=== PATIENT | female | born 1960 | race Caucasian/White ===

== ENCOUNTER 2019-10-30 09:15 | Outpatient (REF) | payer BC, SELFPAY ==
[2019-10-30 21:19] LABS: ALT 48 U/L (14-59); AST 24 U/L (15-37); Albumin 3.3 g/dL (3.4-5.0); Alkaline Phosphatase 64 U/L (46-116); Anion Gap 11.3 mmol/L (3-11); Bilirubin, Total 0.4 mg/dL (0.2-1.0); CO2 27.7 mmol/L (21.0-32.0); CREATININE 0.71 mg/dL (0.55-1.02); Calcium 8.6 mg/dL (8.5-10.1); Calculated LDL 97 mg/dL (<100); Chloride 106 mmol/L (98-107); Cholesterol 154 mg/dL (<200); Glucose 103 mg/dL (74-106); HDL Cholesterol 28 mg/dL (40-60); Potassium 4.5 mmol/L (3.5-5.1); Sodium 145 mmol/L (136-145); TSH (W/Ref FT4) 3.72 uIU/mL (0.36-3.74); Triglyceride 149 mg/dL (<150)
[2019-10-30 21:47] LABS: BUN 10 mg/dL (7-18)
== END 2019-10-30 09:35 ==
LOC: NCHCN 09:15
PROVIDERS: Visit Provider Nurse Practitioner Family
DX: E03.9 Hypothyroidism, unspecified (principal); E78.01 Familial hypercholesterolemia
CPT/HCPCS: 80053; 80061; 84443

== ENCOUNTER 2020-08-09 09:25 | Outpatient (REF) | payer BC, SELFPAY ==
[2020-08-09 21:50] LABS: ALT 36 U/L (14-59); AST 24 U/L (15-37); Albumin 4.1 g/dL (3.4-5.0); Alkaline Phosphatase 48 U/L (46-116); Anion Gap 9.7 mmol/L (3-11); BUN 11 mg/dL (7-18); Bilirubin, Total 0.4 mg/dL (0.2-1.0); CO2 27.3 mmol/L (21.0-32.0); CREATININE 0.79 mg/dL (0.55-1.02); Calcium 8.9 mg/dL (8.5-10.1); Chloride 104 mmol/L (98-107); Creatine Kinase 125 U/L (26-192); Glucose 100 mg/dL (74-106); Potassium 4.1 mmol/L (3.5-5.1); Sodium 141 mmol/L (136-145); Total Protein 7.3 g/dL (6.4-8.2)
[2020-08-09 21:55] LABS: Hemoglobin A1C 5.6 % (<5.7)
[2020-08-11 04:47] LABS: Vitamin D 25 Total 25.3 ng/ml (30-100)
== END 2020-08-09 09:45 ==
LOC: NCHCN 09:25
PROVIDERS: Visit Provider Nurse Practitioner Family
DX: R73.03 Prediabetes (principal); M79.18 Myalgia, other site
CPT/HCPCS: 80053; 82306; 82550; 83036

== ENCOUNTER 2020-10-04 15:20 | Outpatient (REF) | payer BC, SELFPAY ==
[2020-10-04 21:37] LABS: Hemoglobin A1C 5.8 % (<5.7)
[2020-10-04 21:54] LABS: ALT 32 U/L (14-59); AST 20 U/L (15-37); Albumin 3.9 g/dL (3.4-5.0); Alkaline Phosphatase 42 U/L (46-116); Anion Gap 9.7 mmol/L (3-11); BUN 12 mg/dL (7-18); Bilirubin, Total 0.4 mg/dL (0.2-1.0); CO2 27.3 mmol/L (21.0-32.0); CREATININE 0.78 mg/dL (0.55-1.02); Calcium 8.8 mg/dL (8.5-10.1); Calculated LDL 141 mg/dL (<100); Chloride 105 mmol/L (98-107); Cholesterol 212 mg/dL (<200); Glucose 103 mg/dL (74-106); HDL Cholesterol 45 mg/dL (40-60); Potassium 4.5 mmol/L (3.5-5.1); Sodium 142 mmol/L (136-145); TSH (W/Ref FT4) 1.55 uIU/mL (0.36-3.74); Total Protein 7.1 g/dL (6.4-8.2); Triglyceride 133 mg/dL (<150)
[2020-10-06 04:49] LABS: Vitamin D 25 Total 42.3 ng/ml (30-100)
== END 2020-10-04 15:40 ==
LOC: NCHCN 15:20
PROVIDERS: Visit Provider Nurse Practitioner Family
DX: E03.9 Hypothyroidism, unspecified (principal); R73.03 Prediabetes; E78.5 Hyperlipidemia, unspecified; E55.9 Vitamin D deficiency, unspecified
CPT/HCPCS: 80053; 80061; 82306; 83036; 84443

== ENCOUNTER 2020-10-12 19:02 | Outpatient (REF) | payer BC, SELFPAY ==
[2020-10-12 22:20] LABS: Abs Immature Grans 0.01 10^3/uL (0.0-0.06); Absolute Basophil Count 0.05 10^3/uL (0.0-0.2); Absolute Eosinophil Count 0.15 10^3/uL (0.0-0.7); Absolute Monocyte Count 0.24 10^3/uL (0.1-0.8); Basophils % 0.9; Eosinophils % 2.8; HCT 41.1 % (36.0-46.0); HGB 13.5 g/dL (11.2-15.7); Immature Grans % 0.2; Lymphocytes % 38.5; MCH 28.7 pg (27.0-33.0); MCHC 32.8 % (32.0-36.0); MCV 87.3 fL (80-95); MPV 9.2 fL (8.0-11.0); Monocytes % 4.4; Neutrophils % 53.2; Nucleated RBC 0 %; Platelet Count 298 10^3/uL (130-400); RBC 4.71 10^6/uL (3.93-5.22); RDW 12.7 % (11.7-14.6); RDW-SD 40.4 fL; WBC 5.45 10^3/uL (4.4-10.8)
[2020-10-12 22:28] LABS: C-Reactive Protein 0.07 mg/dL (0.0-0.3)
[2020-10-12 23:07] LABS: ESR 12 mm/hr (0-30)
[2020-10-14 13:27] LABS: ANA Interpretation Negative (Negative)
== END 2020-10-12 19:22 ==
LOC: NCHCN 19:02
PROVIDERS: PCP Nurse Practitioner Family; Visit Provider Nurse Practitioner Family
DX: M25.569 Pain in unspecified knee (principal); M25.559 Pain in unspecified hip
CPT/HCPCS: 85652; 85025; 86038; 86140

== ENCOUNTER 2020-11-28 14:10 | Outpatient (REF) | payer BC, SELFPAY ==
[2020-11-30 12:57] LABS: COVID-19 RT-PCR UVMMC Result Negative (Negative)
== END 2020-11-28 14:11 | disposition home or self-care (01) ==
LOC: NCHCN 14:10
PROVIDERS: PCP Nurse Practitioner Family; Visit Provider Nurse Practitioner Family
DX: Z20.822 Contact with and (suspected) exposure to COVID-19 (principal)
CPT/HCPCS: U0003

== ENCOUNTER 2021-05-22 11:54 | Outpatient (REF) | payer BC, SELFPAY ==
[2021-05-22 16:51] LABS: Hemoglobin A1C 5.7 % (<5.7)
[2021-05-22 18:02] LABS: ALT 37 U/L (14-59); AST 23 U/L (15-37); Albumin 4.1 g/dL (3.4-5.0); Alkaline Phosphatase 49 U/L (46-116); Anion Gap 13.3 mmol/L (3-11); BUN 11 mg/dL (7-18); Bilirubin, Total 0.4 mg/dL (0.2-1.0); CO2 24.7 mmol/L (21.0-32.0); CREATININE 0.8 mg/dL (0.55-1.02); Calculated LDL 134 mg/dL (<100); Chloride 105 mmol/L (98-107); Cholesterol 206 mg/dL (<200); Glucose 108 mg/dL (74-106); HDL Cholesterol 39 mg/dL (40-60); Potassium 4.3 mmol/L (3.5-5.1); Sodium 143 mmol/L (136-145); TSH 2.31 uIU/mL (0.36-3.74); Total Protein 7.1 g/dL (6.4-8.2); Triglyceride 168 mg/dL (<150); Vitamin B12 299 pg/mL (193-986)
[2021-05-22 19:21] LABS: Folate 14.1 ng/mL (8.6-20.0)
[2021-05-23 16:02] LABS: Magnesium 1.9 mg/dL (1.7-2.8)
== END 2021-05-22 11:55 | disposition home or self-care (01) ==
LOC: NCHCN 11:54
PROVIDERS: PCP Nurse Practitioner Family; Visit Provider Nurse Practitioner Family
DX: R73.03 Prediabetes (principal); E03.9 Hypothyroidism, unspecified; E78.5 Hyperlipidemia, unspecified; M79.2 Neuralgia and neuritis, unspecified; M79.10 Myalgia, unspecified site
CPT/HCPCS: 80053; 80061; 82607; 82746; 83036; 83735; 84443

== ENCOUNTER 2021-06-20 11:09 | Outpatient (REF) | payer BC, SELFPAY ==
[2021-06-20 13:51] LABS: ALT 41 U/L (14-59); AST 19 U/L (15-37); Albumin 4.1 g/dL (3.4-5.0); Alkaline Phosphatase 45 U/L (46-116); Anion Gap 9.7 mmol/L (3-11); BUN 11 mg/dL (7-18); Bilirubin, Total 0.6 mg/dL (0.2-1.0); CO2 27.3 mmol/L (21.0-32.0); CREATININE 0.8 mg/dL (0.55-1.02); Calcium 8.8 mg/dL (8.5-10.1); Calculated LDL 91 mg/dL (<100); Chloride 106 mmol/L (98-107); Cholesterol 168 mg/dL (<200); Glucose 98 mg/dL (74-106); HDL Cholesterol 43 mg/dL (40-60); Potassium 4.3 mmol/L (3.5-5.1); Sodium 143 mmol/L (136-145); Triglyceride 170 mg/dL (<150)
== END 2021-06-20 11:10 | disposition home or self-care (01) ==
LOC: NCHCN 11:09
PROVIDERS: PCP Nurse Practitioner Family; Visit Provider Nurse Practitioner Family
DX: E78.5 Hyperlipidemia, unspecified (principal); Z00.00 Encounter for general adult medical examination without abnormal findings
CPT/HCPCS: 80053; 80061

== ENCOUNTER 2022-04-27 16:48 | Outpatient (REF) | payer BC, SELFPAY ==
[2022-04-27 22:43] LABS: ALT 38 U/L (14-59); AST 24 U/L (15-37); Alkaline Phosphatase 34 U/L (46-116); Anion Gap 8.5 mmol/L (3-11); BUN 14 mg/dL (7-18); Bilirubin, Total 0.4 mg/dL (0.2-1.0); CO2 26.5 mmol/L (21.0-32.0); CREATININE 0.7 mg/dL (0.55-1.02); Calcium 8.6 mg/dL (8.5-10.1); Calculated LDL 100 mg/dL (<100); Chloride 106 mmol/L (98-107); Cholesterol 164 mg/dL (<200); Glucose 99 mg/dL (74-106); HDL Cholesterol 48 mg/dL (40-60); Potassium 4.2 mmol/L (3.5-5.1); Sodium 141 mmol/L (136-145); Total Protein 7.2 g/dL (6.4-8.2); Triglyceride 84 mg/dL (<150)
== END 2022-04-27 16:49 | disposition home or self-care (01) ==
LOC: NCHCN 16:48
PROVIDERS: PCP Nurse Practitioner Family; Visit Provider Nurse Practitioner Family
DX: E03.9 Hypothyroidism, unspecified (principal); E78.5 Hyperlipidemia, unspecified; R03.0 Elevated blood-pressure reading, without diagnosis of hypertension
CPT/HCPCS: 80053; 80061; 84443

== ENCOUNTER 2023-01-02 12:30 | Outpatient (REF) | payer BC, SELFPAY ==
[2023-01-02 13:22] LABS: Abs Immature Grans 0.02 10^3/uL (0.0-0.06); Absolute Basophil Count 0.06 10^3/uL (0.0-0.2); Absolute Eosinophil Count 0.13 10^3/uL (0.0-0.7); Absolute Lymphocyte Count 2.52 10^3/uL (1.2-3.4); Absolute Monocyte Count 0.33 10^3/uL (0.1-0.8); Absolute Neutrophil Count 2.05 10^3/uL (1.2-6.7); Basophils % 1.2; Eosinophils % 2.5; HCT 41.8 % (36.0-46.0); HGB 14.1 g/dL (11.2-15.7); Immature Grans % 0.4; Lymphocytes % 49.3; MCH 29.3 pg (27.0-33.0); MCHC 33.7 % (32.0-36.0); MCV 87 fL (80-95); MPV 8.7 fL (8.0-11.0); Monocytes % 6.5; Neutrophils % 40.1; Platelet Count 274 10^3/uL (130-400); RBC 4.81 10^6/uL (3.93-5.22); RDW 12.9 % (11.7-14.6); RDW-SD 40.3 fL; WBC 5.11 10^3/uL (4.4-10.8)
[2023-01-02 14:18] LABS: Hemoglobin A1C 5.8 % (<5.7)
[2023-01-02 14:24] LABS: ALT 40 U/L (14-59); AST 28 U/L (15-37); Albumin 3.8 g/dL (3.4-5.0); Alkaline Phosphatase 46 U/L (46-116); Anion Gap 9.4 mmol/L (3-11); BUN 13 mg/dL (7-18); Bilirubin, Total 0.4 mg/dL (0.2-1.0); CO2 25.6 mmol/L (21.0-32.0); CREATININE 0.9 mg/dL (0.55-1.02); Calcium 8.9 mg/dL (8.5-10.1); Calculated LDL 206 mg/dL (<100); Chloride 107 mmol/L (98-107); Cholesterol 310 mg/dL (<200); Estimated GFR 72.28 (mL/min/1.73m2); Glucose 100 mg/dL (74-106); HDL Cholesterol 49 mg/dL (40-60); Potassium 4.1 mmol/L (3.5-5.1); Sodium 142 mmol/L (136-145); TSH (W/Ref FT4) 2.63 uIU/mL (0.36-3.74); Total Protein 7.5 g/dL (6.4-8.2); Triglyceride 276 mg/dL (<150)
== END 2023-01-02 12:31 | disposition home or self-care (01) ==
LOC: NCHCN 12:30
PROVIDERS: PCP Nurse Practitioner Family; Visit Provider Family Medicine
DX: E03.9 Hypothyroidism, unspecified (principal); E78.5 Hyperlipidemia, unspecified; R53.83 Other fatigue; R63.5 Abnormal weight gain; R73.03 Prediabetes
CPT/HCPCS: 80053; 80061; 83036; 84443; 85025

== ENCOUNTER 2023-01-29 15:21 | Outpatient (REF) | payer BC, SELFPAY ==
[2023-01-29 21:24] LABS: Iron 55 ug/dL (50-170); Total Iron Binding Capacity 317 ug/dL (250-450); Transferrin Sat 17 % (15-50)
[2023-01-29 21:47] LABS: Ferritin 72 ng/mL (8-252); Folate 14.5 ng/mL (8.6-20.0); Magnesium 1.9 mg/dL (1.8-2.4); Vitamin B12 383 pg/mL (193-986)
== END 2023-01-29 15:22 | disposition home or self-care (01) ==
LOC: NCHCN 15:21
PROVIDERS: PCP Nurse Practitioner Family; Visit Provider Family Medicine
DX: R53.83 Other fatigue (principal); F41.8 Other specified anxiety disorders; M79.18 Myalgia, other site
CPT/HCPCS: 82607; 82728; 82746; 83540; 83550; 83735

== ENCOUNTER 2023-05-01 09:48 | Outpatient (REF) | payer BC, SELFPAY ==
[2023-05-01 15:41] LABS: Calculated LDL 53 mg/dL (<100); Cholesterol 125 mg/dL (<200); HDL Cholesterol 48 mg/dL (40-60); Triglyceride 124 mg/dL (<150)
== END 2023-05-01 09:49 | disposition home or self-care (01) ==
LOC: NCHCN 09:48
PROVIDERS: PCP Nurse Practitioner Family; Visit Provider Family Medicine
DX: E78.5 Hyperlipidemia, unspecified (principal)
CPT/HCPCS: 80061

== ENCOUNTER 2023-11-28 21:00 | Outpatient (REF) | payer BC, SELFPAY ==
[2023-11-28 21:00] LABS: HGB 13.5 g/dL (11.2-15.7); MCH 28.4 pg (27.0-33.0); MCHC 32.9 % (32.0-36.0); MCV 86 fL (80-95); MPV 9.3 fL (8.0-11.0); Platelet Count 266 10^3/uL (130-400); RBC 4.75 10^6/uL (3.93-5.22); RDW 13.9 % (11.7-14.6); RDW-SD 44.4 fL; WBC 5.02 10^3/uL (4.4-10.8)
[2023-11-28 21:18] LABS: Albumin 3.9 g/dL (3.4-5.0); Alkaline Phosphatase 472 U/L (46-116); Anion Gap 9.4 mmol/L (3-11); BUN 9 mg/dL (7-18); Bilirubin, Total 2.3 mg/dL (0.2-1.0); CO2 26.6 mmol/L (21.0-32.0); CREATININE 0.8 mg/dL (0.55-1.02); Calcium 9.2 mg/dL (8.5-10.1); Chloride 107 mmol/L (98-107); Estimated GFR 82.74 (mL/min/1.73m2); Glucose 124 mg/dL (74-106); Lipase 59 U/L (16-77); Potassium 4.1 mmol/L (3.5-5.1); Sodium 143 mmol/L (136-145); Total Protein 7.5 g/dL (6.4-8.2)
[2023-11-28 21:51] LABS: ALT > 10000 U/L (14-59); AST > 8000 U/L (15-37)
== END 2023-11-28 21:01 | disposition home or self-care (01) ==
LOC: NCHCN 21:00
PROVIDERS: PCP Nurse Practitioner Family; Visit Provider Family Medicine
DX: R10.9 Unspecified abdominal pain (principal)
CPT/HCPCS: 80053; 83690; 85027

== ENCOUNTER 2023-12-10 12:18 | Outpatient (REF) | payer BC, SELFPAY ==
[2023-12-10 15:22] LABS: ALT 414 U/L (14-59); AST 70 U/L (15-37); Albumin 3.3 g/dL (3.4-5.0); Alkaline Phosphatase 176 U/L (46-116); Anion Gap 9.8 mmol/L (3-11); BUN 13 mg/dL (7-18); Bilirubin, Direct 0.5 mg/dL (0.0-0.2); Bilirubin, Total 0.9 mg/dL (0.2-1.0); CO2 27.2 mmol/L (21.0-32.0); CREATININE 0.8 mg/dL (0.55-1.02); Calcium 9.1 mg/dL (8.5-10.1); Chloride 104 mmol/L (98-107); Estimated GFR 82.74 (mL/min/1.73m2); Glucose 99 mg/dL (74-106); Potassium 4.1 mmol/L (3.5-5.1); Sodium 141 mmol/L (136-145); Total Protein 7.3 g/dL (6.4-8.2)
== END 2023-12-10 12:19 | disposition home or self-care (01) ==
LOC: NCHCN 12:18
PROVIDERS: PCP Nurse Practitioner Family; Visit Provider Family Medicine
DX: C24.9 Malignant neoplasm of biliary tract, unspecified (principal)
CPT/HCPCS: 80053; 82248

== ENCOUNTER 2024-07-20 15:16 | Outpatient (REF) | payer BC, SELFPAY ==
[2024-07-20 21:41] LABS: TSH (W/Ref FT4) 1.95 uIU/mL (0.36-3.74)
[2024-07-20 21:53] LABS: Calculated LDL 97 mg/dL (<100); Cholesterol 177 mg/dL (<200); HDL Cholesterol 59 mg/dL (40-60); Triglyceride 106 mg/dL (<150)
== END 2024-07-20 15:17 | disposition home or self-care (01) ==
LOC: NCHCN 15:16
PROVIDERS: PCP Nurse Practitioner Family; Visit Provider Family Medicine
DX: E03.9 Hypothyroidism, unspecified (principal); E78.5 Hyperlipidemia, unspecified
CPT/HCPCS: 80061; 84443

== ENCOUNTER 2024-12-16 15:22 | Outpatient (REF) | payer BC, SELFPAY ==
[2024-12-16 15:58] LABS: Abs Immature Grans 0.02 10^3/uL (0.0-0.06); Absolute Basophil Count 0.02 10^3/uL (0.0-0.2); Absolute Eosinophil Count 0.11 10^3/uL (0.0-0.7); Absolute Lymphocyte Count 1.04 10^3/uL (1.2-3.4); Absolute Monocyte Count 0.25 10^3/uL (0.1-0.8); Basophils % 0.5 %; HCT 37.2 % (36.0-46.0); Immature Grans % 0.5 %; Lymphocytes % 28.3 %; MCH 27.1 pg (27.0-33.0); MCHC 32.3 % (32.0-36.0); MCV 84 fL (80-95); MPV 8.8 fL (8.0-11.0); Monocytes % 6.8 %; Neutrophils % 60.9 %; Platelet Count 230 10^3/uL (130-400); RBC 4.42 10^6/uL (3.93-5.22); RDW 14.4 % (11.7-14.6); RDW-SD 43.8 fL; WBC 3.67 10^3/uL (4.4-10.8)
[2024-12-16 16:01] LABS: Absolute Neutrophil Count 2.24 10^3/uL (1.2-6.7)
[2024-12-16 16:30] LABS: ALT 88 U/L (14-59); AST 64 U/L (15-37); Albumin 3.5 g/dL (3.4-5.0); Alkaline Phosphatase 183 U/L (46-116); Anion Gap 8.8 mmol/L (3-11); BUN 11 mg/dL (7-18); Bilirubin, Total 0.3 mg/dL (0.2-1.0); CO2 30.2 mmol/L (21.0-32.0); CREATININE 0.7 mg/dL (0.55-1.02); Chloride 107 mmol/L (98-107); Estimated GFR 96.52 (mL/min/1.73m2); Glucose 112 mg/dL (74-106); Potassium 3.9 mmol/L (3.5-5.1); Sodium 146 mmol/L (136-145); TSH (W/Ref FT4) 4.69 uIU/mL (0.36-3.74); Total Protein 7.4 g/dL (6.4-8.2)
[2024-12-17 20:16] LABS: T4, Free 1.1 ng/dL (0.8-2.2)
== END 2024-12-16 15:23 | disposition home or self-care (01) ==
LOC: NCHCN 15:22
PROVIDERS: PCP Nurse Practitioner Family; Visit Provider Family Medicine
DX: R53.83 Other fatigue (principal); E78.5 Hyperlipidemia, unspecified; E03.9 Hypothyroidism, unspecified
CPT/HCPCS: 80053; 84439; 84443; 85025

== ENCOUNTER 2025-01-27 11:41 | Outpatient (REF) | payer BC, SELFPAY ==
[2025-01-27 15:16] LABS: TSH (W/Ref FT4) 3.23 uIU/mL (0.36-3.74)
== END 2025-01-27 11:42 | disposition home or self-care (01) ==
LOC: NCHCN 11:41
PROVIDERS: PCP Nurse Practitioner Family; Visit Provider Family Medicine
DX: E03.9 Hypothyroidism, unspecified (principal)
CPT/HCPCS: 84443

== ENCOUNTER 2025-03-16 13:50 | Outpatient (REF) | payer BC, SELFPAY ==
[2025-03-16 17:35] LABS: Iron 62 ug/dL (50-170); Total Iron Binding Capacity 364 ug/dL (250-450); Transferrin Sat 17 % (15-50)
[2025-03-16 18:05] LABS: ALT 56 U/L (14-59); AST 36 U/L (15-37); Albumin 3.5 g/dL (3.4-5.0); Alkaline Phosphatase 114 U/L (46-116); Anion Gap 8.9 mmol/L (3-11); BUN 8 mg/dL (7-18); Bilirubin, Total 0.5 mg/dL (0.2-1.0); CO2 26.1 mmol/L (21.0-32.0); CREATININE 0.8 mg/dL (0.55-1.02); Calcium 8.4 mg/dL (8.5-10.1); Chloride 108 mmol/L (98-107); Estimated GFR 82.23 (mL/min/1.73m2); Ferritin 13 ng/mL (8-252); Glucose 122 mg/dL (74-106); Potassium 3.8 mmol/L (3.5-5.1); Sodium 143 mmol/L (136-145); Total Protein 6.4 g/dL (6.4-8.2)
[2025-03-17 10:25] LABS: Hepatitis A Antibody IgM Negative (Negative); Hepatitis B Core Antibody Negative (Negative); Hepatitis B surface Ag Negative (Negative); Hepatitis C Ab w Rflx HCV PCR Negative (Negative)
== END 2025-03-16 13:51 | disposition home or self-care (01) ==
LOC: NCHCN 13:50
PROVIDERS: PCP Nurse Practitioner Family; Visit Provider Family Medicine
DX: R74.01 Elevation of levels of liver transaminase levels (principal)
CPT/HCPCS: 80053; 86704; 86709; 86803; 87340; 82728; 83540; 83550

== ENCOUNTER 2025-07-22 10:36 | Outpatient (REF) | payer BC, SELFPAY ==
[2025-07-22 16:17] LABS: Hemoglobin A1C 5.8 % (<5.7)
== END 2025-07-22 10:37 | disposition home or self-care (01) ==
LOC: NCHCN 10:36
PROVIDERS: PCP Nurse Practitioner Family; Visit Provider Family Medicine
DX: R73.9 Hyperglycemia, unspecified (principal)
CPT/HCPCS: 83036